=== PATIENT | female | born 1975 | race Caucasian/White ===

== ENCOUNTER → 2022-03-07 15:44 | Outpatient (CLI) | payer OTHER, SELFPAY ==
--- NOTE | ~2022-03-07 | US_ITS ---
EXAMINATION: US transvaginal DATE: 03/07/2022 16:05 INDICATION: Irregular menses TECHNIQUE: Multiple endovaginal sonographic images of the pelvis were obtained. COMPARISON: None. FINDINGS: The uterus measures 10.7 x 6.6 x 7.1 cm. There is a 6.1 x 5.5 cm isoechoic mass with the ap pearance of an intramural fibroid in the posterior uterine body. A similar appearing 3.1 x 3.1 cm mas s is also seen in the posterior uterine body. The endometrial complex measures 5 mm. The right ovary measures 2.2 x 1.5 x 1.6 cm. The left ovary measures 3.0 x 1.9 x 2.8 cm. There is normal vascular elizabeth w in the ovaries. There is no free fluid in the pelvis. IMPRESSION: 1. Uterine fibroids, otherwise unremarkable examination. Reviewed, dictated and finalized at location A.
== END ==
DX: N92.6 Irregular menstruation, unspecified (principal); D25.9 Leiomyoma of uterus, unspecified
CPT/HCPCS: 76830

== ENCOUNTER 2022-04-28 01:26 | Day surgery (SDC) | payer OTHER, SELFPAY ==
[2022-04-22 12:50] VITALS: BMI 37.8
--- NOTE | 2022-04-22 13:00 | PC.NURSE ---
Report to the Outpatient Waiting Room, entrance under the green pavilion located off [facility], at time 0600 on date 04/28/22. OR Time: 0730. - You and your visitor will be asked a series of questions to screen for COVID 19 for your protection. - Only one visitor is allowed at this time. - The patient visitor is requested to leave or wait in car when not with patient. - A mask is required within the hospital. Patients may have clear liquids (water, carbonated beverages, clear teas, apple juice) until 3 hours prior to surgery with a maximum of 20 ounces. - No food from midnight until time of surgery Take the following medications with a SIP of water the morning of surgery: THYROID Medications to discontinue per physician: VITAMINS/SUPPLEMENTS Date to take last dose: 04/24/22 Please no make-up, nail cuban, hairspray, perfume, deodorant, or body powder the day of surgery. No jewelry (including any body piercings) or valuables the day of surgery, leave them at home. Please take a shower or bath the night before, or the morning of, surgery with an antibacterial soap. Wear comfortable, loose fitting clothing. - Jewelry must be removed prior to entering the operating room. Rings and piercings that are not removed may be cut off. - The hospital will not accept responsibility for valuables. - Please leave all valuables, including medications, at home the day of surgery. If you are going home after surgery, a licensed taxi cab driver must drive you home. - NO public transportation without another adult. - We recommend that an adult stay with you for 24 hours following discharge. - We also recommend that you do not drive, make important decision, drink alcoholic beverages, or take any drugs that were not prescribed by your health care provider for at least 24 hours after your discharge time. Follow any additional instructions given to you from your surgeon. If you or anyone in your household have experienced Covid symptoms in the past week, please notify your surgeon or the nurse liaison at the phone number below for possible testing. Telephone instructions given to PT - YVETTE KOTHARI and asked if any additional questions and then verbalized understanding. Patient advised to call surgeon office or pre surgery nurse liaison [phone] if any additional questions.
--- NOTE | 2022-04-27 09:27 | PM.IMHP ---
H&P: HPI History of Present Illness Date/Time: 04/27/22 09:27 47-year-old 5 para 5005 female presents with complaints of heavy irregular vaginal bleeding. She has been struggling with this bleeding over the years but this has become worsened since she began to do pellet injections for hormonal therapy. Overall she is feeling well but is having heavier bleeding with clots cramping to the point of needing intervention. She also had an ultrasound which did reveal uterine fibroids and we have discussed that the procedure being performed performed today will not specifically address these fibroids, And any symptoms specifically related to the fibroids. Also discussed tubal ligation for contraception after this procedure, with the permanence failure rate and risk of ectopic and regret. She states good understanding and agrees to proceed. Chief Complaint: Menometrorrhagia Review of Systems Review of Systems: All systems reviewed & are unremarkable except as noted in HPI and below PMFSH Past Medical History Medical History Hypothyroidism rx meds Surgical History Surgical History History of back surgery (12/18/18) bulging disc - micro laser shaved Hx of cholecystectomy (~10/30/00) Family History Family History Grandparent Hypertension Transient cerebral ischemia maternal grandmother Diabetes mellitus Social History Social History Smoking status: Never smoker Alcohol intake: current Alcohol use details: 4/MONTH Substance use: never Substance use type: does not use Living arrangements: with family Additional living arrangements comments: 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 Gender identity (if verbalized by the patient): Female Sexual Orientation (if Verbalized by the Patient): Straight or Heterosexual Spiritual care concerns: No Meds Home Medications and Allergies Home Medications Medication Instructions Recorded Confirmed Type multivitamin 1 tablet PO DAILY 04/22/22 04/22/22 History thyroid (pork) 90 mg tablet 1 tablet PO DAILY 04/22/22 04/22/22 History ([place] Thyroid) Allergies Allergy/AdvReac Type Severity Reaction Status Date / Time No Known Allergies Allergy Unknown Verified 03/15/22 15:06 Exam Const: General: cooperative, healthy appearing and comfortable Resp: Effort & Inspection: normal respiratory effort Auscultation: clear to auscultation bilaterally Cardio: Rate: regular rate Rhythm: regular rhythm GI: Inspection: normal to inspection Auscultation: normal bowel sounds : External Female Exam: normal external appearance Speculum Exam - Vagina: normal appearance of the vagina Speculum Exam - Cervix: normal appearance of the cervix Bimanual exam- vagina & uterus: enlarged ( 10-12 week size with nodularity noted.) Bimanual Exam- Adnexa, other: normal adnexae Assessment and Plan Assessment and plan (1) Menometrorrhagia: Code(s): N92.1 - Excessive and frequent menstruation with irregular cycle Status: Acute Assessment and Plan: will proceed with hysteroscopy D&C and endometrial ablation (2) Encounter for female sterilization procedure: Code(s): Z30.2 - Encounter for sterilization Status: Acute Assessment and Plan: will proceed with bilateral laparoscopic salpingectomy (3) Uterine fibroid: Code(s): D25.9 - Leiomyoma of uterus, unspecified Status: Acute
[2022-04-28] VITALS (8 sets, daily range): BP systolic 104–151; BP diastolic 65–82; PULSE 45–72; RESP 14–18; TEMP 36.2–36.3; O2SAT 99–100
[2022-04-28] MEDS: ACETAMINOPHEN 500 MG TABLET 1000 MG PO (06:34)
[2022-04-28] MEDS: LACTATED RINGERS 1,000 ML 30 ML IV CONT (06:44)
[2022-04-28] MEDS: KETOROLAC 15 MG/ML VIAL (*BKC) IV PUSH (06:46)
--- NOTE | 2022-04-28 06:55 | WPDANESEPPF ---
Anes - Initial Pre Proc Eval Procedure: Operation Date: 04/28/22 07:30 Proposed Procedures p Hysteroscopy Dilation and Curettage, Paula Endometrial Ablation, Laparoscopic Bilateral Salpingectomy - Larry Gibbons MD Date/Time: 04/28/22 06:55 Surgeon: Larry Gibbons MD Pre Op Diagnosis: Abnormal Vaginal Bleeding Patient Data Age: 47 Gender: F Height: 1.63 m Weight: 95.3 kg Last Vital Signs Temp 36.3 C L 04/28/22 06:21 Pulse 72 04/28/22 06:21 Resp 16 04/28/22 06:21 BP 117/71 04/28/22 06:21 Pulse Ox 100 04/28/22 06:21 O2 Del Method Room Air 04/28/22 06:21 Allergies Allergy/AdvReac Type Severity Reaction Status Date / Time No Known Allergies Allergy Unknown Verified 04/28/22 06:31 Home Medications Medication Instructions Recorded Confirmed Type multivitamin 1 tablet PO DAILY 04/22/22 04/28/22 History thyroid (pork) 90 mg tablet 1 tablet PO DAILY 04/22/22 04/28/22 History ([place] Thyroid) Patient hx anesthesia problems: none Family hx anesthesia problems: none Results Review: All pre-operative results and documents have been reviewed as part of the pre-operative evaluation. [facility] Past Medical History Medical History Hypothyroidism rx meds Surgical History Surgical History History of back surgery (12/18/18) bulging disc - micro laser shaved Hx of cholecystectomy (~10/30/00) Family History Family History Grandparent Hypertension Transient cerebral ischemia maternal grandmother Diabetes mellitus Social History Social History Smoking status: Never smoker Alcohol intake: current Alcohol use details: 4/MONTH Substance use: never Substance use type: does not use Living arrangements: with family Additional living arrangements comments: 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 Gender identity (if verbalized by the patient): Female Sexual Orientation (if Verbalized by the Patient): Straight or Heterosexual Spiritual care concerns: No Anes - Eval Final PreProcedure Day of Procedure 04/28/22 06:55 Patient weight: obese Heart: regular rate and rhythm Lungs: clear to auscultation Airway: Mallampati scale class II Neurological: alert and oriented Last oral intake: >/= 8 hours ASA classification: II Emergent: no Anesthetic plan: proceed Anesthesia type and monitoring: general ETT and standard monitoring Results Review: All pre-operative results and documents have been reviewed as part of the pre-operative evaluation. Informed Consent: The patient's anesthetic plan and its attendant risks and benefits were discussed with the patient/family/POA. Questions were solicited and answers provided to the satisfaction of the patient/family/POA.
--- NOTE | 2022-04-28 07:12 | WPDHPUPDATE1 ---
History and Physical Update Update Date/Time: 04/28/22 07:12 History and Physical has been reviewed, including an updated exam of the patient. There are NO changes in the patient's condition. Risks, benefits, and alternatives have been discussed and questions answered. Patient agrees to proceed with procedure.
--- NOTE | 2022-04-28 07:13 | WPDHPUPDATE1 ---
History and Physical Update Update Date/Time: 04/28/22 07:13 History and Physical has been reviewed, including an updated exam of the patient. There are NO changes in the patient's condition. Risks, benefits, and alternatives have been discussed and questions answered. Patient agrees to proceed with procedure.
[2022-04-28] MEDS: ceFAZolin 2 GM/D5W 50 ML 2 GM/50 ML BAG IVPB (07:38)
--- NOTE | 2022-04-28 08:40 | W.PM.PROC2 ---
Procedure Note - Detailed Date of Procedure 04/28/22 Pre-op Diagnosis 1. Menometrorrhagia 2. Fibroid uterus 3. Undesired fertility Post-op Diagnosis Same Procedure Performed 1. Hysteroscopic myomectomy 2. Endometrial ablation 3. Laparoscopic bilateral salpingectomy Surgeon Larry Gibbons MD Anesthesia General Findings 1. Laparoscopic exam revealed enlarged globular uterus with fibroids. Tubes and ovaries that abnormality. 2. Hysteroscopic exam revealed thin lining with fibroid noted. Description of Procedure Patient was prepped and draped in usual manner for this procedure. Periumbilical and lower quadrant incisions were made and trocars were placed under direct visualization. Findings were noted as above and using the Harmonic scalpel bilaterally the mesial salpinx cauterized and cut in the tubes removed without difficulty. There was no bleeding gas was allowed to escape incisions were approximated using 4-0 Monocryl after the trocars removed. Cervix was dilated to allow the hysteroscope to placed which did reveal fibroid as noted above. Using the MyoSure instrument this removed in its entirety. Once this was removed in anatomy of the endometrial cavity had been restored and ablation was performed Paula instrument was used. Estimated Blood Loss 200 Drains No Packing No Pathology Yes Complications No immediate complications Condition Stable Disposition PACU [facility] Billing Surgery - Charge Forward: Surgery Billing
[2022-04-28] MEDS: oxyCODONE HCL (*CRX) 5 MG TAB IR PO (09:36)
== END 2022-04-28 10:25 | disposition home or self-care (01) ==
PROVIDERS: Visit Provider Obstetrics & Gynecology
PROC: 0UDB8ZZ Extraction of Endometrium, Via Natural or Artificial Opening Endoscopic (ICD-10-PCS; CPT 58558; principal; 2022-04-28 07:30)
DX: N92.1 Excessive and frequent menstruation with irregular cycle (principal); Z30.2 Encounter for sterilization; N83.8 Other noninflammatory disorders of ovary, fallopian tube and broad ligament; E03.9 Hypothyroidism, unspecified; E66.9 Obesity, unspecified; Z68.36 Body mass index [BMI] 36.0-36.9, adult
CPT/HCPCS: 59151; 58563; 88302; 88305; A9270; J0690; J1100; J1885; J2250; J2405; J2704; J2710; J3010; J7030; J7120

== ENCOUNTER 2022-09-12 15:25 | Outpatient (CLI) | payer OTHER, SELFPAY | END 2022-09-12 15:26 | disposition home or self-care (01) | LOC: ANHSURGERY 15:29 | PROVIDERS: PCP Physician Assistant; Visit Provider Obstetrics & Gynecology | DX: N92.1 Excessive and frequent menstruation with irregular cycle (principal); Z01.818 Encounter for other preprocedural examination | CPT/HCPCS: 36415; 86850; 86900; 86901 ==

== ENCOUNTER 2022-09-16 00:38 | Day surgery (SDC) | payer OTHER, SELFPAY ==
[2022-09-08 09:20] VITALS: BMI 37.8
--- NOTE | 2022-09-08 09:28 | PC.NURSE ---
Report to the Outpatient Waiting Room, entrance under the green pavilion located off [facility], at time _0700_ on date _[id number]_. Planned Procedure Time: _0900_. Time changes happen often and if your time is changed the preop area will call you the afternoon before. - You and your visitor will be asked to self-screen and do not enter if you have any COVID symptoms. - We encourage only one visitor and NO visitors under age 16 are allowed at this time. Your visitor will receive communication by the phone number that is given day of service. - The patient visitor is requested to social distance or may leave the building when not with patient due to restrictions. - A mask is required within the hospital. Patients may have clear liquids (water, carbonated beverages, clear teas, apple juice) until 3 hours prior to surgery with a maximum of 20 ounces. - No food from midnight until time of surgery Take the following medications with a SIP of water the morning of surgery: ___Thyroid Medications to discontinue per physician ____All vitamins Date to take last myst__[id number] Please no make-up, nail azeri, hairspray, perfume, deodorant, or body powder the day of surgery. No jewelry (including any body piercings) or valuables the day of surgery, leave them at home. Please take a shower or bath the night before, or the morning of, surgery with an antibacterial soap. Wear comfortable, loose fitting clothing. - Jewelry must be removed prior to entering the operating room. Rings and piercings that are not removed may be cut off. - The hospital will not accept responsibility for valuables. - Please leave all valuables, including medications, at home the day of surgery. If you are going home after surgery, a licensed tractor driver teamster must drive you home. - NO public transportation without another adult. - We recommend that an adult stay with you for 24 hours following discharge. - We also recommend that you do not drive, make important decision, drink alcoholic beverages, or take any drugs that were not prescribed by your health care provider for at least 24 hours after your discharge time. Follow any additional instructions given to you from your surgeon. If you or anyone in your household have experienced Covid symptoms in the past week, please notify your surgeon or the nurse liaison at the phone number below for possible testing. Telephone instructions given to _Patient___and asked if any additional questions and then verbalized understanding. Patient advised to call surgeon office or pre surgery nurse liaison [phone] if any additional questions.
--- NOTE | 2022-09-15 14:49 | P.PNAN_ITS ---
Anes - Initial Pre Proc Eval Procedure: Operation Date: 09/16/22 07:30 Proposed Procedures p Robotic Assisted Total Laparoscopic Hysterectomy, Possible Total Abdominal Hysterectomy - Larry Gibbons MD Date/Time: 09/15/22 14:49 Surgeon: Larry Gibbons MD Pre Op Diagnosis: Post ablation Syndrome, Uterine Fibroid Patient Data Age: 47 Gender: F Height: 1.63 m Weight: 100 kg Allergies Allergy/AdvReac Type Severity Reaction Status Date / Time No Known Allergies Allergy Unknown Verified 09/08/22 09:19 Home Medications Medication Instructions Recorded Confirmed Type multivitamin 1 tablet PO DAILY 04/22/22 09/08/22 History thyroid (pork) 90 mg tablet 1 tablet PO DAILY 04/22/22 09/08/22 History ([place] Thyroid) progesterone micronized 200 mg 200 mg PO QHS 07/21/22 09/08/22 History capsule ibuprofen 800 mg tablet 800 mg PO TID PRN pain #30 tabs 07/22/22 09/08/22 Rx Patient hx anesthesia problems: none Family hx anesthesia problems: none Results Review: All pre-operative results and documents have been reviewed as part of the pre- operative evaluation. [facility] Past Medical History Medical History (Updated 08/31/22 @ 10:22 by Larry Gibbons MD) Abnormal mammogram 06-27-2019 Breast US - L breast cyst, to f/u in 6 mo. Hypothyroidism rx meds Screening mammogram, encounter for Surgical History Surgical History History of back surgery (12/18/18) bulging disc - micro laser shaved History of gynecological procedure (04/28/22) Hysteroscopic myomectomy/Endometrial ablation Laparoscopic bilateral salpingectomy / Benign Hx of cholecystectomy (~10/30/00) Family History Family History Grandparent Hypertension Transient cerebral ischemia maternal grandmother Diabetes mellitus Social History Social History Smoking status: Never smoker Alcohol intake: current Alcohol use details: 4/MONTH Substance use: never Substance use type: does not use Living arrangements: with family Additional living arrangements comments: 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 Gender identity (if verbalized by the patient): Female Sexual Orientation (if Verbalized by the Patient): Straight or Heterosexual Spiritual care concerns: No Anes - Eval Final PreProcedure Day of Procedure 09/15/22 14:49 Patient weight: obese Heart: regular rate and rhythm Lungs: clear to auscultation Airway: Mallampati scale class III Neurological: alert and oriented Last oral intake: >/= 8 hours ASA classification: II Emergent: no Anesthetic plan: proceed Anesthesia type and monitoring: general ETT and standard monitoring Results Review: All pre-operative results and documents have been reviewed as part of the pre- operative evaluation. Informed Consent: The patient's anesthetic plan and its attendant risks and benefits were discussed with the patient/family/POA. Questions were solicited and answers provided to the satisfaction of the patient/family/POA.
[2022-09-16] VITALS (15 sets, daily range): BP systolic 133–156; BP diastolic 66–96; PULSE 65–94; RESP 14–19; TEMP 36.6–37.3; O2SAT 95–100
[2022-09-16] MEDS: ACETAMINOPHEN 500 MG TABLET 1000 MG PO (07:00)
[2022-09-16] MEDS: KETOROLAC 15 MG/ML VIAL (*BKC) IV PUSH (07:01)
[2022-09-16] MEDS: LACTATED RINGERS 1,000 ML 30 ML IV CONT ×2 (07:08→09:13)
--- NOTE | 2022-09-16 07:13 | WPDHPUPDATE1 ---
History and Physical Update Update Date/Time: 09/16/22 07:13 History and Physical has been reviewed, including an updated exam of the patient. There are NO changes in the patient's condition. Risks, benefits, and alternatives have been discussed and questions answered. Patient agrees to proceed with procedure.
[2022-09-16] MEDS: SCOPOLAMINE 1.5 MG PATCH TRANSDERM (07:26)
[2022-09-16] MEDS: ceFAZolin 2 GM/D5W 50 ML 2 GM/50 ML BAG IVPB (07:29)
--- NOTE | 2022-09-16 09:05 | W.PM.PROC2 ---
Procedure Note - Detailed Date of Procedure 09/16/22 Pre-op Diagnosis 1. Menometrorrhagia 2. Uterine fibroid 3. Failed endometrial ablation Post-op Diagnosis Same Procedure Performed 1. Robotic assisted total laparoscopic hysterectomy with ovarian preservation Surgeon Larry Gibbons MD Anesthesia General Findings 1. Enlarged fibroid uterus (325g) Description of Procedure Patient prepped draped usual manner for this procedure. Cervical instruments were placed for uterine mobility throughout the case. Abdominal trocar sites were marked and placed under direct visualization. Trocars were then attached to the DA Melissa system minutes were placed under direct visualization. Surgeon then moved to the console. Enlarged fibroid uterus was noted with ovaries without abnormality. Prior salpingectomy was noted. Utero-ovarian ligaments were cauterized and cut bilaterally and round ligament was then cauterized and cut and bladder flap developed without difficulty. Posterior leaf the broad ligament was then incised to skeletonize the uterine vessels. Once these were skeletonized they were cauterized and cut to take away the blood supply from the uterus. Once this was done the posterior colpotomy incision was made this carried circumferentially to separate the cervix from the vagina. Uterus was then delivered into the vagina without difficulty. Irrigation was undertaken there was no significant bleeding. The lock suture was used to approximate the vaginal cuff beginning at the right angle to midline and left angle to midline with good approximation hemostasis noted. Irrigation was then again undertaken with no bleeding Jero was empirically placed over the vaginal cuff. At this point the procedure was considered terminated. Gas was allowed to escape trocars removed and incisions approximated using 4-0 Monocryl. Patient sent to recovery room stable condition. Estimated Blood Loss 100 Drains No Packing No Pathology Yes Complications No immediate complications Condition Stable Disposition PACU [facility] Billing Surgery - Charge Forward: Surgery Billing
[2022-09-16] MEDS: fentaNYL CITRATE INJ (*CRX) 100 MCG/2 ML VIAL 25 MCG IV PUSH ×2 (10:16→10:21)
[2022-09-16] MEDS: DEXTROSE 5%/LACTATED RINGERS 1,000 ML 125 ML IV CONT (11:34)
[2022-09-16] MEDS: HYDROcodone/acetaminophen (*CRX) 10-325 MG TABLET 1 TAB PO ×3 (11:45→21:44)
[2022-09-16] MEDS: IBUPROFEN 600 MG TABLET PO ×2 (15:16→21:44)
[2022-09-16] MEDS: SIMETHICONE 80 MG TAB.CHEW PO (21:45)
[2022-09-17] MEDS: IBUPROFEN 600 MG TABLET PO ×2 (04:28→11:03)
[2022-09-17] MEDS: SIMETHICONE 80 MG TAB.CHEW PO (04:28)
[2022-09-17] MEDS: HYDROcodone/acetaminophen (*CRX) 5-325 MG TABLET 1 TAB PO ×2 (04:28→10:58)
[2022-09-17 05:06] VITALS: BP 128/74; PULSE 72; RESP 18; TEMP 36.8; O2SAT 100
[2022-09-17 05:20] LABS: Basophils Percent Auto 0.1 % (0.2-1.2); Eosinophils Percent Auto 0.2 % (0-4.4); Hematocrit 23.6 % (37.0-47.0); Immature Granulocyte Absolute 0.03 K/mm3 (0.00-0.031); Immature Granulocyte Percent A 0.3 % (0-0.5); Lymphocytes Absolute Auto 2.05 K/mm3 (0.9-3.2); Lymphocytes Percent Auto 23.2 % (18.3-44.2); Mean Corpuscular HGB Conc 28.8 g/dl (32-36); Mean Corpuscular Volume 69.4 fl (80-100); Monocytes Absolute Auto 0.5 K/mm3 (0.1-0.6); Monocytes Percent Auto 6.1 % (2.6-8.5); Neutrophils Absolute Auto 6.2 K/mm3 (1.3-6.7); Neutrophils Percent Auto 70.1 % (45.5-73.1); Platelet Count Result 428 k/mm3 (150-375); White Blood Count 8.8 K/mm3 (4.5-10.0)
[2022-09-17 05:47] LABS: Hemoglobin 6.8 g/dL (12.0-15.0)
[2022-09-17 05:48] LABS: Hypochromasia 2+ (NORMAL); Platelet Estimate Adequate (Adequate)
[2022-09-17 05:49] LABS: Ovalocytes 1+ (NORMAL)
[2022-09-17 07:22] VITALS: BP 134/73; PULSE 78; RESP 16; TEMP 36.8; O2SAT 99
[2022-09-17 07:37] VITALS: BP 119/60; PULSE 73; RESP 18; TEMP 36.7; O2SAT 98
[2022-09-17] MEDS: THYROID 30 MG TABLET 90 MG PO (07:47)
[2022-09-17 08:22] VITALS: BP 127/73; PULSE 62; RESP 18; TEMP 36.7; O2SAT 100
[2022-09-17 08:43] VITALS: BP 145/77; PULSE 61; RESP 18; TEMP 36.8; O2SAT 100
[2022-09-17 08:45] VITALS: BP 145/77; PULSE 61; RESP 18; TEMP 36.8; O2SAT 100
--- NOTE | 2022-09-17 08:54 | P.PNAN_ITS ---
Anes - Prog Note Post-Op Date/Time: 09/17/22 08:54 Cardiovascular status: normal Respiratory status: normal Airway patency: baseline Mental status: baseline Post-Op hydration status: normal Vital Signs: Last Vital Signs Temp 36.7 C 09/17/22 07:37 Pulse 73 09/17/22 07:37 Resp 18 09/17/22 07:37 BP 119/60 09/17/22 07:37 Pulse Ox 98 09/17/22 07:37 O2 Del Method Room Air 09/17/22 05:06 O2 Flow Rate 2 09/16/22 11:10 Pain Score (VAS): 01/06 I/O: Intake & Output 09/16/22 09/17/22 09/17/22 23:59 07:59 15:59 Intake Total 1000 0 Output Total 900 Balance 100 0 Laboratory Tests 09/17/22 04:14 09/12/22 09/17/22 15:42 04:14 WBC 8.8 RBC 3.40 L Hgb 6.8 L* Hct 23.6 L MCV 69.4 L MCH 20.0 L MCHC 28.8 L RDW 17.0 H Plt Count 428 H MPV 9.0 Immature Gran % (Auto) 0.3 Neut % (Auto) 70.1 Lymph % (Auto) 23.2 [place] % (Auto) 6.1 Eos % (Auto) 0.2 Baso % (Auto) 0.1 L Lymph # (Auto) 2.05 [place] # (Auto) 0.5 Eos # (Auto) 0.0 Baso # (Auto) 0.0 Abs Immat Gran (auto) 0.03 Absolute Neuts (auto) 6.2 Absolute Nucleated RBC 0.0 Nucleated RBC % 0.0 Platelet Estimate Adequate Hypochromasia 2+ Ovalocytes 1+ Schistocytes Not Reportable Blood Type A Positive Antibody Screen Negative Crossmatch See Detail Post-procedural complaints: none Patient Feedback: Patient satisfied with anesthetic care.
[2022-09-17 10:55] LABS: Hematocrit 27.6 % (37.0-47.0); Hemoglobin 8.1 g/dL (12.0-15.0)
--- NOTE | 2022-09-17 14:01 | PM.DS ---
DS: Admitting Diagnosis Discharge Date 09/17/22 Admitting Diagnosis abnormal uterine bleeding DS: Summary Hospital Course Hospital Course: Johana Howard was admitted after robotic assisted total laparoscopic hysterectomy and bilateral salpingectomy for abnormal uterine bleeding and uterine fivroids. The above procedure was performed with no complications. Pt was noted to be anemic post op requiring transfusion. She is doing well post op. She states her pain is well controlled with PO medications. She reports minimal bleeding. She is ambulating up to the chair. Her valle catheter was removed. She is tolerating PO without N/V. She reports passing flatus. Status at Discharge Overall status at discharge: patient is progressing back to baseline Time Spent with Patient Time attestation: Total time spent providing and/or coordinating discharge services: Time spent: Less than 30 minutes Exam Const: General: comfortable and no acute distress Limitations: no limitations Resp: Effort & Inspection: normal respiratory effort Auscultation: clear to auscultation bilaterally Cardio: Rate: regular rate Rhythm: regular rhythm GI: Inspection: non-distended GI Palp: Yes Soft to palpation, Yes Tenderness to palpation present (GI) (milder tenderness to deep palpation) and No Guarding due to palpation present (GI) Auscultation: normal bowel sounds Other: incisions C/D/I covered with dermabond Urinary Catheter: Urinary Catheter: urine clear Skin: General skin exam: normal color Extrem: General: normal to inspection Psych: Mental Status: mental status grossly normal Affect: normal affect DS: Data Data Completed and Pending Pending studies at discharge: Pending at discharge 09/16/22 09:00 Surgical [PTH] Routine Labs on day of discharge: Labs from last 24 hours 09/17/22 09/17/22 09/12/22 10:48 04:14 15:42 WBC 8.8 RBC 3.40 L Hgb 8.1 L 6.8 L* Hct 27.6 L 23.6 L MCV 69.4 L MCH 20.0 L MCHC 28.8 L RDW 17.0 H Plt Count 428 H MPV 9.0 Immature Gran % (Auto) 0.3 Neut % (Auto) 70.1 Lymph % (Auto) 23.2 [place] % (Auto) 6.1 Eos % (Auto) 0.2 Baso % (Auto) 0.1 L Lymph # (Auto) 2.05 [place] # (Auto) 0.5 Eos # (Auto) 0.0 Baso # (Auto) 0.0 Abs Immat Gran (auto) 0.03 Absolute Neuts (auto) 6.2 Absolute Nucleated RBC 0.0 Nucleated RBC % 0.0 Platelet Estimate Adequate Hypochromasia 2+ Ovalocytes 1+ Schistocytes Not Reportable Blood Type A Positive Antibody Screen Negative Crossmatch See Detail Discharge Plan Discharge Patient Disposition: Home, Self-Care Discharge Instructions: Remove the Scopolamine patch that was placed behind your ear in 72 hours or less. Wash your hands after touching. Follow up with office in 2 weeks. Patient Instructions: Laparoscopic Hysterectomy (DC) Stand Alone Forms: General Discharge Instructions Discharge Orders: Discharge Order (Routine); Ordered 09/17/22 Ordered By: Nishant Dumont Discharge Medications: New oxycodone-acetaminophen 5-325 mg tablet 1 tablet PO Q6H PRN (Reason: pain) Qty: 30 0RF No Action thyroid (pork) [[place] Thyroid] 90 mg tablet 1 tablet PO DAILY multivitamin Tablet 1 tablet PO DAILY progesterone micronized 200 mg capsule 200 mg PO QHS ibuprofen 800 mg tablet 800 mg PO TID PRN (Reason: pain) Qty: 30 1RF AMG Discharge Billing Inpatient Discharge Inpatient Discharge: 54466 Hosp D/C 30 Min
--- NOTE | 2022-09-25 07:38 | PM.DS ---
DS: Admitting Diagnosis Discharge Date 09/17/22 Admitting Diagnosis Menometrorrhagia DS: Summary Hospital Course Reason for hospitalization: 47 old female hysterectomy without issue. Postop early was anemic and was transfused. After this was doing and was discharged home follow up in the office in 2 weeks. Hospital Course: See above Time Spent with Patient Time attestation: Total time spent providing and/or coordinating discharge services: DS: Data Data Completed and Pending Completed studies during hospitalization: Pending at discharge 09/16/22 09:00 Surgical [PTH] Routine Discharge Plan Discharge Patient Disposition: Home, Self-Care Discharge Instructions: Remove the Scopolamine patch that was placed behind your ear in 72 hours or less. Wash your hands after touching. Follow up with office in 2 weeks. Patient Instructions: Laparoscopic Hysterectomy (DC) Stand Alone Forms: General Discharge Instructions Discharge Orders: Discharge Order (Routine); Ordered 09/17/22 Ordered By: Nishant Dumont Discharge Medications: New oxycodone-acetaminophen 5-325 mg tablet 1 tablet PO Q6H PRN (Reason: pain) Qty: 30 0RF hydrocodone-acetaminophen 5-325 mg Tablet 1 tablet PO Q4-6H PRN (Reason: Pain Rated 5 Or Less) Qty: 20 0RF ibuprofen 600 mg Tablet 600 mg PO Q6H PRN (Reason: Cramping) Qty: 30 0RF Continued thyroid (pork) [[place] Thyroid] 90 mg tablet 1 tablet PO DAILY multivitamin Tablet 1 tablet PO DAILY Discontinued progesterone micronized 200 mg capsule 200 mg PO QHS ibuprofen 800 mg tablet 800 mg PO TID PRN (Reason: pain) Qty: 30 1RF
== END 2022-09-17 14:15 | disposition home or self-care (01) ==
LOC: ANHSURGERY 07:27 → ANHOB2 16:44
PROVIDERS: Student in an Organized Health Care Education/Training Program; PCP Physician Assistant; Visit Provider Obstetrics & Gynecology
PROC: (CPT 58573; principal; 2022-09-16 07:30)
DX: N92.1 Excessive and frequent menstruation with irregular cycle (principal); D62 Acute posthemorrhagic anemia; D25.9 Leiomyoma of uterus, unspecified; N80.00 Endometriosis of the uterus, unspecified; N99.85 Post endometrial ablation syndrome; E03.9 Hypothyroidism, unspecified; E66.9 Obesity, unspecified; Z68.38 Body mass index [BMI] 38.0-38.9, adult
CPT/HCPCS: 58573; S2900; 36415; 36430; 85014; 85018; 85025; 86850; 86900; 86901; 86920; 88307; 99199; A9270; J0690; J1100; J1170; J1885; J2250; J2405; J2704; J2710; J3010; J7030; J7120; J7121; P9016

== ENCOUNTER 2023-06-02 08:01 | Emergency (ER) | payer OTHER, SELFPAY ==
--- NOTE | ~2023-06-02 | XR_ITS ---
EXAMINATION: XR abdomen/kub 1V DATE: 06/02/2023 08:33 INDICATION: Right flank pain. TECHNIQUE: A supine view of the abdomen on 2 radiographs was obtained. COMPARISON: CT abdomen and pelvis 03/10/2013 FINDINGS: There are no dilated loops of bowel. Surgical clips in the right upper quadrant are likely from cholecystectomy. There are phleboliths in the pelvis. IMPRESSION: 1. Normal bowel gas pattern. Reviewed, dictated and finalized at location B.
[2023-06-02 08:11] VITALS: BP 137/84; PULSE 99; RESP 16; TEMP 36.8; O2SAT 99
--- NOTE | 2023-06-02 08:11 | ED.FEMALEGU ---
HPI - Female Genitourinary General Chief complaint: Urogenital-Female Stated complaint: lower back / stomach pain fever Time Seen by Provider: 06/02/23 08:20 Source: patient, RN notes reviewed and old records reviewed Mode of arrival: ambulatory Limitations: no limitations History of Present Illness HPI Narrative: 48 year old female presents to express care with complaints of pressure and pain to her suprapubic area and also discomfort to her right flank region which radiates to her right side since yesterday afternoon. Patient reports that she thinks she had a fever during the night and had sweats and chills. Patient reports no constipation had normal bowel movements X2 yesterday. Patient reports she has no appetite has been drinking water and has not had any nausea ,vomiting or diarrhea. Patient reports she had similar episode and pain 3 weeks ago which lasted for 2 days and resolved on own. Patient reports that she has no burning or pain with urination describes pressure, states her bladder feels 'weird'. Patient has had hysterectomy and also has had Cholecystectomy, has had pyelonephritis in past. Patient denies any pain in right lower quadrant of her abdomen with no McBurney point tenderness on exam. MD elicited complaint: UTI Pertinent past history: pyelonephritis and hysterectomy Onset (ago): day(s) (since yesterday afternoon) Location of symptoms: suprapubic and flank (right flank radiates to side, suprapubic abdomen) Severity scale (1-10): 6 Vaginal bleeding: none Related Data Home Medications Medication Instructions Recorded Confirmed multivitamin 1 tablet PO DAILY 04/22/22 10/28/22 thyroid (pork) 90 mg tablet 1 tablet PO DAILY 04/22/22 10/28/22 ([place] Thyroid) Allergies Allergy/AdvReac Type Severity Reaction Status Date / Time No Known Allergies Allergy Unknown Verified 06/02/23 09:58 Review of Systems Review of Systems: CONSTITUTIONAL:Reports tactile fever, chills, or sweats. CARDIOVASCULAR: Denies chest pain, palpitations, or edema. RESPIRATORY: Denies cough or dyspnea. GASTROINTESTINAL: Reports suprapubic pressure, no nausea, vomiting, or diarrhea, states appetite is decreased. GENITOURINARY: Reports no dysuria, frequency, urgency, states suprapubic pressure. Reports right flank pain no hematuria. SKIN: Denies rash or itching. MUSCULOSKELETAL: Denies back pain or myalgia. reports right CVA tenderness that radiates to her right side NEUROLOGIC: Denies headache All systems reviewed & are unremarkable except as noted in HPI and below PMFSH Past Medical History Medical History Abnormal mammogram 06-27-2019 Breast US - L breast cyst, to f/u in 6 mo. Hypothyroidism rx meds Screening mammogram, encounter for Surgical History Surgical History History of back surgery (12/18/18) bulging disc - micro laser shaved History of gynecological procedure (04/28/22) Hysteroscopic myomectomy/Endometrial ablation Laparoscopic bilateral salpingectomy / Benign History of robot-assisted laparoscopic hysterectomy (09/16/22) RALH with ovarian preservation Hx of cholecystectomy (~10/30/00) Family History Family History Grandparent Hypertension Transient cerebral ischemia maternal grandmother Diabetes mellitus Social History Social History Smoking status: Never smoker Alcohol intake: current Alcohol use details: 4/MONTH Substance use: never Substance use type: does not use Living arrangements: with family Additional living arrangements comments: Occupation/Education: occupation 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
== END 2023-06-02 09:03 | disposition short-term general hospital (02) ==
LOC: EXPBETH 08:04
PROVIDERS: Emergency Provider Registered Nurse; PCP Physician Assistant
DX: R10.9 Unspecified abdominal pain (principal); E03.9 Hypothyroidism, unspecified
CPT/HCPCS: 74018; 81003; 99213; G0463

== ENCOUNTER 2023-06-02 09:34 | Emergency (ER) | payer OTHER, SELFPAY ==
--- NOTE | ~2023-06-02 | CT_ITS ---
EXAMINATION: CT abdomen pelvis w con DATE: 06/02/2023 10:53 INDICATION: Right flank pain. Low abdominal pain. TECHNIQUE: Computed tomography (CT) of the abdomen and pelvis was performed with 100 mL Omnipaque 350 intravenous contrast. Automated exposure control and iterative reconstruction technique were employe d. The dose-length product was 1221.98 mGy-cm. COMPARISON: CT abdomen and pelvis 03/10/2013 FINDINGS: The visualized portions of the lung bases demonstrate mild atelectasis. A calcified left seda ng nodule is consistent with old granulomatous disease. No pleural effusion. The heart size is normal . No pericardial effusion. There is a large sliding hiatal hernia. The liver demonstrates focal steat osis adjacent to the falciform ligament. There are changes of cholecystectomy. The spleen, pancreas, adrenal glands, and kidneys are normal. There are scattered diverticula in the colon. There is wall t hickening of sigmoid colon with surrounding fat stranding, consistent with diverticulitis. There are no dilated loops of bowel. The appendix is normal. There are no pathologically enlarged lymph nodes. There is no free intraperitoneal fluid. There is severe lower lumbar spondylosis. IMPRESSION: 1. Acute sigmoid diverticulitis. No perforation or abscess. 2. Large sliding hiatal hernia. Reviewed, dictated and finalized at location B.
[2023-06-02 09:49] VITALS: BP 148/97; PULSE 99; RESP 16; TEMP 36.8; O2SAT 99
[2023-06-02 10:16] LABS: Basophils Percent Auto 0.2 % (0.2-1.2); Eosinophils Absolute Auto 0.1 K/mm3 (0-0.3); Eosinophils Percent Auto 0.4 % (0-4.4); Hematocrit 38.9 % (37.0-47.0); Hemoglobin 12.9 g/dL (12.0-15.0); Immature Granulocyte Absolute 0.05 K/mm3 (0.00-0.031); Immature Granulocyte Percent A 0.4 % (0-0.5); Lymphocytes Absolute Auto 1.58 K/mm3 (0.9-3.2); Mean Corpuscular HGB Conc 33.2 g/dl (32-36); Mean Corpuscular Hemoglobin 27.4 pg (26-34); Mean Corpuscular Volume 82.8 fl (80-100); Mean Platelet Volume 9.3 fl (7.4-10.4); Monocytes Absolute Auto 0.8 K/mm3 (0.1-0.6); Monocytes Percent Auto 6.4 % (2.6-8.5); Neutrophils Absolute Auto 9.7 K/mm3 (1.3-6.7); Neutrophils Percent Auto 79.6 % (45.5-73.1); Platelet Count Result 319 k/mm3 (150-375); Red Cell Distribution Width 15.3 % (11.5-14.5); White Blood Count 12.2 K/mm3 (4.5-10.0)
[2023-06-02] MEDS: SODIUM CHLORIDE 0.9% IV 1,000 ML 999 ML IV CONT (10:28)
[2023-06-02 10:30] LABS: Alanine Aminotransferase 27 U/L (6-35); Albumin Level 4.6 g/dL (3.5-5.1); Alkaline Phosphatase 79 U/L (38-126); Anion Gap 10 mmol/L (8-16); Aspartate Amino Transferase 24 U/L (14-36); Bilirubin,Total 0.7 mg/dL (0.2-1.3); Blood Urea Nitrogen 8 mg/dL (7-17); Calcium 9.3 mg/dL (8.4-10.2); Carbon Dioxide 24 mmol/L (22-30); Chloride 103 mmol/L (98-107); Estimated CRCL calculation 92 ml/min; Estimated Glomerular Filt Rate > 60; Glucose 109 mg/dL (65-110); Lipase 51 U/L (23-300); Potassium 4.1 mmol/L (3.4-5.0); Sodium 137 mmol/L (137-145)
[2023-06-02] MEDS: KETOROLAC 15 MG/ML VIAL (*BKC) IV PUSH (10:30)
[2023-06-02 10:35] LABS: Appearance Urine Cloudy (Clear); Bacteria Urine 2+ /hpf; Bilirubin Urine Negative (Negative); Blood Urine Negative (Negative); Color Urine Yellow (Yellow); Glucose Urine UA Negative (Negative); Ketones Urine Negative (Negative); Leukocyte Esterase Ur Negative LEU/UL (Negative); Need Manual Microscopic Reviewed; Nitrate Urine Negative (Negative); Protein Urine Negative (Negative); RBC Urine 0-2 /hpf (0-2); Specific Grav Ur 1.015 (1.001-1.035); Squamous Epithelial Cell Urine Moderate /hpf (Few); pH Urine 5.5 (5.0-9.0)
[2023-06-02 10:37] LABS: Add Urine Microscopic? YES
--- NOTE | 2023-06-02 10:43 | ED.ABDPAIN ---
HPI - Abdominal Pain General Chief Complaint: Abdominal Pain Stated Complaint: Flank pain Time Seen by Provider: 06/02/23 09:40 Source: patient Mode of arrival: ambulatory Limitations: no limitations History of Present Illness HPI narrative: This is a 48-year-old female that presents to the emergency department for right flank pain. Ongoing since yesterday. Associated with bladder pressure and discomfort. Also reports subjective fevers. Denies nausea, vomiting, dysuria, hematuria, or diarrhea. Related Data Home Medications Medication Instructions Recorded Confirmed multivitamin 1 tablet PO DAILY 04/22/22 10/28/22 thyroid (pork) 90 mg tablet 1 tablet PO DAILY 04/22/22 10/28/22 ([place] Thyroid) Allergies Allergy/AdvReac Type Severity Reaction Status Date / Time No Known Allergies Allergy Unknown Verified 06/02/23 09:58 Review of Systems Review of Systems: CONSTITUTIONAL: Reports fever GASTROINTESTINAL: Reports abdominal pain. Denies nausea, vomiting, or diarrhea. GENITOURINARY: Denies dysuria or hematuria. All systems reviewed & are unremarkable except as noted in HPI and below PMFSH Past Medical History Medical History Abnormal mammogram 06-27-2019 Breast US - L breast cyst, to f/u in 6 mo. Hypothyroidism rx meds Screening mammogram, encounter for Surgical History Surgical History History of back surgery (12/18/18) bulging disc - micro laser shaved History of gynecological procedure (04/28/22) Hysteroscopic myomectomy/Endometrial ablation Laparoscopic bilateral salpingectomy / Benign History of robot-assisted laparoscopic hysterectomy (09/16/22) RALH with ovarian preservation Hx of cholecystectomy (~10/30/00) Family History Family History Grandparent Hypertension Transient cerebral ischemia maternal grandmother Diabetes mellitus Social History Social History Smoking status: Never smoker Alcohol intake: current Alcohol use details: 4/MONTH Substance use: never Substance use type: does not use Living arrangements: with family Additional living arrangements comments: Occupation/Education: occupation 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 HEAD: Normocephalic, atraumatic. EYES: EOMI. CHEST: Clear to auscultation. No respiratory distress. No wheezes rales or rhonchi HEART: Regular rate and rhythm. No murmur heard. Normal peripheral pulses. ABDOMEN: Soft, nondistended, normal active bowel sounds. Mild tenderness to palpation throughout the lower abdomen, without guarding. No CVA tenderness EXTREMITIES: Normal range of motion. No edema. SKIN: Warm, dry, no rash. NEURO: No focal deficits. Alert and oriented x3. PSYCH: Normal mood and affect Course Course Emergency Course: Patient was updated on work-up and agrees with plan of care Vital Signs Vital signs: Vital Signs Temperature 98.3 F 06/02/23 09:49 Pulse Rate 99 06/02/23 09:49 Respiratory Rate 16 06/02/23 09:49 Blood Pressure 148/97 H 06/02/23 09:49 Pulse Oximetry 99 06/02/23 09:49 Oxygen Delivery Room Air 06/02/23 09:49 Temperature 98.3 F 06/02/23 09:49 Pulse Rate 99 06/02/23 09:49 Respiratory Rate 16 06/02/23 09:49 Blood Pressure 148/97 H 06/02/23 09:49 Pulse Oximetry 99 06/02/23 09:49 Oxygen Delivery Room Air 06/02/23 09:49 MDM - Abdominal Pain MDM Narrative Medical decision making narrative: Patient presents to the emergency department for right-sided abdominal pain pre
[2023-06-02 12:00] VITALS: BP 123/82; O2SAT 100
== END 2023-06-02 12:00 | disposition home or self-care (01) ==
PROVIDERS: Emergency Provider Physician Assistant; PCP Physician Assistant
DX: K57.32 Diverticulitis of large intestine without perforation or abscess without bleeding (principal); E03.9 Hypothyroidism, unspecified; Z90.710 Acquired absence of both cervix and uterus; Z90.49 Acquired absence of other specified parts of digestive tract; K44.9 Diaphragmatic hernia without obstruction or gangrene
CPT/HCPCS: 36415; 74018; 74177; 80053; 81001; 81003; 81025; 83690; 85025; 87086; 87088; 96361; 96374; 99284; J1885; J7030; Q9967